=== PATIENT | male | born 1990 | race Caucasian/White ===

== ENCOUNTER 2016-08-05 08:17 | Emergency (ER) | payer SELFPAY ==
[~2016-08-05] VITALS: Ht 182.9 cm; Wt 82.0 kg
[2016-08-05 08:20] VITALS: Ht 182.9 cm; Wt 82.0 kg
--- OUTSIDE RECORDS SUMMARY | 2016-08-05 08:21 | XMS REPORT | Continuity of Care Document ---
Author Author [facility] Organization [facility] Address [address] [place] [address] Phone Unavailable Care Team Providers Care Home Connect Lpn Name Role Phone Provider, No Primary Care Primary Care Physician Unavailable Insurance Providers Payer Name Policy Number Subscriber Name Relationship Self Pay Cj Rapp Self / Same As Patient Advance Directives Directive Response Recorded Date/Time Do You Have A Living Will? No 03/23/16 11:33am Do You Have a DPOA? No 03/23/16 11:33am Chief Complaint and Reason for Visit Chief Complaint Allergic Reaction Reason for Visit Allergic reaction Problems Active Problems Medical Problem Onset Date Status Gastroenteritis Unknown Acute Sinusitis, acute frontal Unknown Acute Allergic reaction Unknown Acute Medications Current Home Medications Medication Dose Units Route Directions Days/Qty Instructions Start Date Amoxicillin Trihydrate 500 Mg 500 Mg Oral Three Times A Day 10 Days Past Home Medications Medication Directions Ordered Status Ondansetron Hcl 4 Mg Tab.rapdis, 4 Mg Oral Every 6 Hours As Needed as needed for Nausea 06/16/14 Discontinued Social History Social History Problem Response Recorded Date/Time History of Street Drugs? Yes 03/23/2016 11:32am Hx Alcohol Use Yes 03/23/2016 11:32am Query Response Start Date Stop Date Smoking status: Current everyday smoker Hospital Discharge Instructions No hospital discharge instructions. Plan of Care Discharge Date 03/23/16 12:38pm Disposition HOME, ROUTINE DIS/ASST LIVING Condition at Discharge Stable & Improved Instructions/Education Provided General Allergic Reaction (ED) Prescriptions See Medication Section Referrals No Primary Care Provider - Additional Instructions/Education Activity Restrictions: Call the doctor's office for an appointment, if you have any problems, concerns or need to make a follow-up appointment. As discussed you may by some Benadryl over the counter and if symtoms return take 25mg once every 4 hours if needed. If you have any new or worsening symptoms you can return for another evaluation. I recommend to stop taking your medication if this is what you think the cause was. IMPORTANT: We examined and treated you today on an emergency basis only. In most cases, you must let your doctor check you again. Tell your doctor about any new or lasting problems. We cannot recognize and treat all injuries or illnesses in one Emergency Department visit. If you had special tests, such as EKG's or X-rays, we will review them again within 24 hours. We will call you if there are any new suggestions. YOU ARE THE MOST IMPORTANT FACTOR IN YOUR RECOVERY. Follow these instructions carefully. Take your medicines as prescribed. Most important, see a doctor again as discussed. If you have problems that we have not discussed, call or visit your doctor right away. [facility] Emergency Department Functional Status No functional status results. Allergies, Adverse Reactions, Alerts No known allergies. Immunizations No immunization records. Vital Signs Acute Vital Signs Vital Response Date/Time Temperature (Fahrenheit) 97.6 degrees F (97.6 - 99.5) 03/23/2016 11:38am Pulse Pulse Rate 81 bpm (60 - 100) 03/23/2016 12:35pm Respiratory Rate 18 bpm (10 - 24) 03/23/2016 12:35pm Oxygen Saturation O2 Sat by Pulse Oximetry 98 % (93 - 100) 03/23/2016 12:35pm Blood Pressure 128/73 mm Hg 03/23/2016 12:35pm Blood Pressure Mean 91 mm Hg 03/23/2016 12:35pm Height 6 ft 0 in Weight 158 lb Body Mass Index 21.4 kg/m^2 Ambulatory Vital Signs Vital Response Date/Time Height 5 ft 9.500 in 06/16/2014 2:26pm Weight 165 lbs 06/16/2014 2:26pm Temperature 97.5 degrees F 06/16/2014 2:26pm Blood Pressure, Sitting 138/93 mm Hg 06/16/2014 2:26pm Pulse Rate 89 bpm 06/16/2014 2:26pm Respiration Rate 22 bpm 06/16/2014 2:26pm Body Surface Area 1.92 m2 06/16/2014 2:26pm Body Mass Index 24.0 kg/m2 06/16/2014 2:26pm Pulse Oximetry Pulse Oximetry 06/16/2014 2:26pm Results Laboratory Results Test Name Result Units Flags Reference Collection Date/Time Result Date/ Time Comments Influenza Type A Antigen NEGATIVE NEGATIVE 03/08/2016 12:57pm 2015 1:34pm Influenza Type B Antigen NEGATIVE NEGATIVE 03/08/2016 12:57pm 2015 1:34pm Influenza Virus Source NASAL 03/08/2016 12:57pm 03/08/2016 1:34pm White Blood Count 11.6 1000/cmm H 3.80-10.80 03/08/2016 1:10pm 2015 1:16pm Red Blood Count 4.30 MIL/uL 4.20-5.80 03/08/2016 1:10pm 03/08/2016 1: 16pm Hemoglobin 14.1 g/dL 13.2-17.1 03/08/2016 1:10pm 03/08/2016 1:16pm Hematocrit 40.0 % 39.0-50.0 03/08/2016 1:10pm 03/08/2016 1:16pm Mean Corpuscular Volume 93.0 fL 80.0-100.0 03/08/2016 1:10pm 2015 1:16pm Mean Corpuscular Hemoglobin 32.8 pg 27.0-33.0 03/08/2016 1:10pm 2015 1:16pm Mean Corpuscular Hemoglobin Concent 35.3 g/dL 32.0-36.0 03/08/2016 1: 10pm 03/08/2016 1:16pm Platelet Count 312 1000/uL 140-400 03/08/2016 1:10pm 03/08/2016 1:16pm Neutrophils (%) (Auto) 62.4 % 50.0-70.0 03/08/2016 1:10pm 03/08/2016 1: 16pm Lymphocytes (%) (Auto) 25.8 % 20.0-44.0 03/08/2016 1:10pm 03/08/2016 1: 16pm Monocytes (%) (Auto) 9.4 % 4.0-13.0 03/08/2016 1:10pm 03/08/2016 1: 16pm Eosinophils (%) (Auto) 2.1 % <=4.0 03/08/2016 1:10pm 03/08/2016 1:16pm Basophils (%) (Auto) 0.3 % <=3.0 03/08/2016 1:10pm 03/08/2016 1:16pm Neutrophils # (Auto) 7.23 1000/uL 1.90-7.60 03/08/2016 1:10pm 2015 1:16pm Lymphocytes # (Auto) 2.99 1000/uL 0.80-4.75 03/08/2016 1:10pm 2015 1:16pm Monocytes # (Auto) 1.09 1000/uL 0.15-1.40 03/08/2016 1:10pm 03/08/2016 1:16pm Eosinophils # (Auto) 0.24 1000/uL 0.00-0.40 03/08/2016 1:10pm 2015 1:16pm Basophils # (Auto) 0.04 1000/uL 0.00-0.30 03/08/2016 1:10pm 03/08/2016 1:16pm Red Cell Distribution Width 12.0 % 11.0-15.0 03/08/2016 1:10pm 2015 1:16pm Mean Platelet Volume 8.9 fL 8.7-11.9 03/08/2016 1:10pm 03/08/2016 1: 16pm White Blood Count 8.0 1000/cmm 3.80-10.80 03/23/2016 11:53am 2015 12:19pm Red Blood Count 4.75 MIL/uL 4.20-5.80 03/23/2016 11:53am 03/23/2016 12: 19pm Hemoglobin 15.3 g/dL 13.2-17.1 03/23/2016 11:53am 03/23/2016 12:19pm Hematocrit 44.1 % 39.0-50.0 03/23/2016 11:53am 03/23/2016 12:19pm Mean Corpuscular Volume 92.8 fL 80.0-100.0 03/23/2016 11:53am 2015 12:19pm Mean Corpuscular Hemoglobin 32.2 pg 27.0-33.0 03/23/2016 11:53am 2015 12:19pm Mean Corpuscular Hemoglobin Concent 34.7 g/dL 32.0-36.0 03/23/2016 11: 53am 03/23/2016 12:19pm Platelet Count 423 1000/uL H 140-400 03/23/2016 11:53am 03/23/2016 12: 19pm Neutrophils (%) (Auto) 53.6 % 50.0-70.0 03/23/2016 11:53am 03/23/2016 12:19pm Lymphocytes (%) (Auto) 33.8 % 20.0-44.0 03/23/2016 11:53am 03/23/2016 12:19pm Monocytes (%) (Auto) 9.3 % 4.0-13.0 03/23/2016 11:53am 03/23/2016 12: 19pm Eosinophils (%) (Auto) 2.8 % <=4.0 03/23/2016 11:53am 03/23/2016 12: 19pm Basophils (%) (Auto) 0.5 % <=3.0 03/23/2016 11:53am 03/23/2016 12:19pm Neutrophils # (Auto) 4.27 1000/uL 1.90-7.60 03/23/2016 11:53am 2015 12:19pm Lymphocytes # (Auto) 2.69 1000/uL 0.80-4.75 03/23/2016 11:53am 2015 12:19pm Monocytes # (Auto) 0.74 1000/uL 0.15-1.40 03/23/2016 11:53am 2015 12:19pm Eosinophils # (Auto) 0.22 1000/uL 0.00-0.40 03/23/2016 11:53am 2015 12:19pm Basophils # (Auto) 0.04 1000/uL 0.00-0.30 03/23/2016 11:53am 2015 12:19pm Red Cell Distribution Width 12.4 % 11.0-15.0 03/23/2016 11:53am 2015 12:19pm Mean Platelet Volume 9.0 fL 8.7-11.9 03/23/2016 11:53am 03/23/2016 12: 19pm Sodium Level 139 mmol/L 136-145 03/23/2016 11:53am 03/23/2016 12:20pm Potassium Level 4.2 mmol/L 3.6-5.0 03/23/2016 11:53am 03/23/2016 12: 20pm Chloride Level 106 mmol/L 97-109 03/23/2016 11:53am 03/23/2016 12:20pm Carbon Dioxide Level 23 mEq/L 17-26 03/23/2016 11:53am 03/23/2016 12: 20pm Anion Gap 14 8-18 03/23/2016 11:53am 03/23/2016 12:20pm Glucose Level 128 mg/dL H 70-99 03/23/2016 11:53am 03/23/2016 12:20pm Blood Urea Nitrogen 18.2 mg/dL 8.9-20.6 03/23/2016 11:53am 03/23/2016 12:20pm Creatinine 0.72 mg/dL 0.57-1.11 03/23/2016 11:53am 03/23/2016 12:20pm Estimated GFR (Non- >=61 >60 03/23/2016 11:53am 03/23 12:20pm eGFR is measured in mL/min/1.73m2. If patient is -[place], multiply reported result by 1.21. BUN/Creatinine Ratio 25 7-25 03/23/2016 11:53am 03/23/2016 12:20pm Calculated Osmolality 292 mOSM/kg 280-300 03/23/2016 11:53am 2015 12:20pm Calcium Level 9.1 mg/dL 8.4-10.0 03/23/2016 11:53am 03/23/2016 12:20pm Urine Cannabinoids Screen PRESUMPTIVE POSITIVE * NEGATIVE 03/23/2016 11 :58am 03/23/2016 12:22pm Confirmatory testing is recommended for all presumptive positive samples. Urine Phencyclidine (PCP) Level NEGATIVE NEGATIVE 03/23/2016 11:58am 03/23/2016 12:22pm Urine Cocaine Level NEGATIVE NEGATIVE 03/23/2016 11:58am 03/23/2016 12:22pm Urine Methamphetamines Level NEGATIVE NEGATIVE 03/23/2016 11:58am 08/2015 12:22pm Urine Opiates Screen NEGATIVE NEGATIVE 03/23/2016 11:58am 03/23/2016 12:22pm Urine Amphetamines Screen PRESUMPTIVE POSITIVE * NEGATIVE 03/23/2016 11 :58am 03/23/2016 12:22pm Confirmatory testing is recommended for all presumptive positive samples. Urine Benzodiazepines Screen NEGATIVE NEGATIVE 03/23/2016 11:58am 08/2015 12:22pm Ur Tricyclic Antidepressants Screen NEGATIVE NEGATIVE 03/23/2016 11: 58am 03/23/2016 12:22pm Urine Methadone Level NEGATIVE NEGATIVE 03/23/2016 11:58am 2015 12:22pm Urine Barbiturates Screen NEGATIVE NEGATIVE 03/23/2016 11:58am 2015 12:22pm Urine Oxycodone Level NEGATIVE NEGATIVE 03/23/2016 11:58am 2015 12:22pm Urine Propoxyphene Level NEGATIVE NEGATIVE 03/23/2016 11:58am 2015 12:22pm THE REFERENCE RANGE FOR ALL DRUG CLASSES IS NEGATIVE. THE DETECTION LIMITS FOR THE DRUG CLASSES ARE: TRICYCLIC ANTIDEPRESSANTS...................... 300 ng/mL BARBITURATES................................... 200 ng/mL METHADONE...................................... 200 ng/mL BENZODIAZEPINE................................. 150 ng/mL CANNABINOIDS................................... 50 ng/mL OPIATES........................................ 100 ng/mL AMPHETAMINE.....................................500 ng/mL COCAINE METABOLITES............................ 150 ng/mL PHENCYCLIDINE.................................. 25 ng/mL PROPOXYPHENE................................... 300 ng/mL mAMP............................................500 ng/mL OXYCODONE.......................................100 ng/mL THESE SCREENING RESULTS ARE TO BE USED ONLY FOR MEDICAL TREATMENT PURPOSES. Ambulatory Laboratory Results Test Name Result Units Flags Reference Result Date/Time Comments Bedside Blood Urea Nitrogen 6 mg/dL 6-06/16/2014 3:02pm Bedside Chloride 102 mmol/L 96-110 06/16/2014 3:02pm Bedside Total CO2 26 mmol/L 23-33 06/16/2014 3:02pm Bedside Creatinine 0.7 mg/dL 0.5-1.2 06/16/2014 3:02pm Bedside Anion Gap 16 mmol/L 8-18 06/16/2014 3:02pm Bedside Glucose 87 mg/dL 60-108 06/16/2014 3:02pm Bedside Hematocrit 44 % 06/16/2014 3:02pm Bedside Hemoglobin (Calculated) 15 g/dL 13.0-18.0 06/16/2014 3:02pm Bedside Ionized Calcium (Cata) 1.28 mmol/L H 1.12-1.23 06/16/2014 3:02pm Bedside Potassium 3.8 mmol/L 3.5-5.3 06/16/2014 3:02pm Bedside Sodium 139 mmol/L 136-148 06/16/2014 3:02pm Bedside White Blood Count 7.9 10^9/L 4.0-11.0 06/16/2014 2:56pm Procedures Procedure Status Date Provider(s) ROUTINE VENIPUNCTURE Completed 03/08/16 COMPLETE CBC W/AUTO DIFF WBC Completed 03/08/16 INFLUENZA ASSAY W/OPTIC Completed 03/08/16 EMERGENCY DEPT VISIT Completed 03/08/16 Encounters Encounter Location Arrival/Admit Date Discharge/Depart Date Attending Provider Departed Emergency Room [facility] 03/23/16 11:33am 12:38pm Figueroa Granados Departed Emergency Room [facility] 03/08/16 12:38pm 1:45pm Verenice Rangel APRN Recent Diagnosis Allergic reaction
--- OUTSIDE RECORDS SUMMARY | 2016-08-05 08:21 | XMS REPORT | Continuity of Care Document ---
Author Author [facility] Organization [facility] Address Unknown Phone Unavailable Allergies Active Description Code Type Severity Reaction Onset Reported/Identified Relationship to Patient Clinical Status Yes No Known Allergies NKA Miscellaneous Allergy Unknown N/A 06/16/2014 Yes No Known Allergies NKA Miscellaneous Allergy Unknown N/A 06/16/2014 Medications Problems Date Dx Coded Attending Type Code Diagnosis Diagnosed By 06/16/2014 Varinder Araujo DO Other 780.96 GENERALIZED PAIN 03/08/2016 Verenice Rangel APRN Other J01.90 ACUTE SINUSITIS, UNSPECIFIED 03/08/2016 Verenice Rangel APRN Other R05 COUGH Procedures Results Test Result Range Influenzae A B (rapid) - 03/08/16 12:57 Influenzae A NEGATIVE NEGATIVE Influenzae B NEGATIVE NEGATIVE Source NASAL Complete Blood Count - 03/08/16 13:10 White Blood Count 11.6 1000/cmm 3.80- 10.80 Red Blood Cell Count 4.30 MIL/uL 4.20- 5.80 Hemoglobin 14.1 g/dL 13.2-17.1 Hematocrit 40.0 % 39.0-50.0 Mean Corpuscular Volume 93.0 fL 80.0- 100.0 Mean Corpuscular Hemoglobin 32.8 pg 27.0- 33.0 Mean Corpuscular HGB Conc 35.3 g/dL 32.0- 36.0 Platelet Count 312 1000/uL 140-400 Neutrophil % 62.4 % 50.0-70.0 Lymphocytes % 25.8 % 20.0-44.0 Monocytes % 9.4 % 4.0-13.0 Eosinophil % 2.1 % <=4.0 Basophil % 0.3 % <=3.0 Neutrophils # 7.23 1000/uL 1.90-7.60 Lymphocytes # 2.99 1000/uL 0.80-4.75 Monocytes # 1.09 1000/uL 0.15-1.40 Eosinophil # 0.24 1000/uL 0.00-0.40 Basophil # 0.04 1000/uL 0.00-0.30 Red Cell Distribution Width 12.0 % 11.0- 15.0 Mean Platelet Volume 8.9 fL 8.7-11.9 Complete Blood Count - 03/23/16 11:53 White Blood Count 8.0 1000/cmm 3.80- 10.80 Red Blood Cell Count 4.75 MIL/uL 4.20- 5.80 Hemoglobin 15.3 g/dL 13.2-17.1 Hematocrit 44.1 % 39.0-50.0 Mean Corpuscular Volume 92.8 fL 80.0- 100.0 Mean Corpuscular Hemoglobin 32.2 pg 27.0- 33.0 Mean Corpuscular HGB Conc 34.7 g/dL 32.0- 36.0 Platelet Count 423 1000/uL 140-400 Neutrophil % 53.6 % 50.0-70.0 Lymphocytes % 33.8 % 20.0-44.0 Monocytes % 9.3 % 4.0-13.0 Eosinophil % 2.8 % <=4.0 Basophil % 0.5 % <=3.0 Neutrophils # 4.27 1000/uL 1.90-7.60 Lymphocytes # 2.69 1000/uL 0.80-4.75 Monocytes # 0.74 1000/uL 0.15-1.40 Eosinophil # 0.22 1000/uL 0.00-0.40 Basophil # 0.04 1000/uL 0.00-0.30 Red Cell Distribution Width 12.4 % 11.0- 15.0 Mean Platelet Volume 9.0 fL 8.7-11.9 Basic Metabolic Profile - 03/23/16 11:53 Sodium Level 139 mmol/L 136-145 Potassium Level 4.2 mmol/L 3.6-5.0 Chloride Level 106 mmol/L 97-109 Carbon Dioxide Level 23 mEq/L 17-26 Anion Gap 14 8-18 Glucose 128 mg/dL 70-99 Blood Urea Nitrogen 18.2 mg/dL 8.9-20.6 Creatinine 0.72 mg/dL 0.57-1.11 eGFR Non-Black >=61 >60 BUN/Creatinine Ratio 25 7-25 Osmolality, Calculated 292 mOSM/kg 280- 300 Calcium Level 9.1 mg/dL 8.4-10.0 Toxicology Screen, Urine - 03/23/16 11:58 Cannabinoids(Marijuana) PRESUMPTIVE POSITIVE NEGATIVE Phencyclidine NEGATIVE NEGATIVE Cocaine NEGATIVE NEGATIVE Methamphetamines NEGATIVE NEGATIVE Opiates NEGATIVE NEGATIVE Amphetamine/Meth PRESUMPTIVE POSITIVE NEGATIVE Benzodiazepines NEGATIVE NEGATIVE Tricyclic Antidepressants NEGATIVE NEGATIVE Methadone NEGATIVE NEGATIVE Barbiturates NEGATIVE NEGATIVE Oxycodone NEGATIVE NEGATIVE Propoxyphene NEGATIVE NEGATIVE HIV-1 p24 Ag/HIV1/HIV2 Ab - 04/09/16 14:48 HIV-1 p24 Ag/HIV1/HIV2 Ab NON-REACTIVE NON-REACTIV Acute Hepatitis Panel - 04/09/16 14:48 Hepatitis A Virus AB IgM NON-REACTIVE NON-REACTIVE Hepatitis B Core AB IgM NON-REACTIVE NON -REACTIVE Hepatitis B Surface Antigen NON-REACTIVE NON-REACTIVE Hepatitis C Virus AB REACTIVE NON- REACTIVE Hep C Ab Signal/Cut-Off Ratio 33.40 < 1.00 HSV 2 IgG, Herpeselect Spec Ab - 04/09/16 14:48 HSV 2 IgG, Herpeselect Spec Ab <0.90 C.trachomatis/N.gonorrhoeae - 04/09/16 14:48 Chlamydia Trachomastis RNA,TMA NOT DETECTED NOT DETECTED Neisseria Gonorrhoeae RNA, TMA NOT DETECTED NOT DETECTED See Note: SEE NOTE Syphillis w/Rflx Titer - 04/09/16 14:48 Rapid Plasma Reagin(RPR) NON-REACTIVE NON-REACTIVE HCV RNA, Quant by PCR - 04/09/16 14:48 Hepatitis C, RNA Quant [id number] IU/mL <15 See Note SEE NOTE Hepatitis C, RNA Quant Log 5.60 Log IU/mL <1.18 Encounters ACCT No. Visit Date/Time Discharge Status Pt. Type Provider Facility Loc./Unit Complaint [id number] 06/16/2014 14:45:00 2014 23:59:59 [facility] SRH.IMG.UC [id number] 06/16/2014 14:00:00 2014 23:59:59 [facility] SRP.URGENT
--- OUTSIDE RECORDS SUMMARY | 2016-08-05 08:21 | XMS REPORT | Continuity of Care Document ---
Author Author [facility] Organization [facility] Address [address] [place] [address] Phone Unavailable Care Team Providers Care Health Insurance Agent Name Role Phone Memo Hernandez MD Primary Care Physician [phone] Insurance Providers Payer Name Policy Number Subscriber Name Relationship Self Pay Cj Rapp Self / Same As Patient Advance Directives Directive Response Recorded Date/Time Do You Have A Living Will? No 04/09/16 2:41pm Do You Have a DPOA? No 04/09/16 2:41pm Problems Active Problems Medical Problem Onset Date [...] discharge instructions. Plan of Care Discharge Date 04/09/16 11:59pm Prescriptions See Medication Section Functional Status No functional status results. Allergies, [...] Pressure Mean 91 mm Hg 03/23/2016 12:35pm Ambulatory Vital Signs Vital Response Date/Time Height [...] 1:16pm Platelet Count 312 1000/uL 140-400 03/08/2016 1:1003/08/2016 1:16pm Neutrophils (%) (Auto) 62.4 % 50.0-70.0 03/08/2016 1:1003/08/2016 1: 16pm Lymphocytes (%) (Auto) 25.8 % 20.0-44.0 03/08/2016 1:03/08/2016 1: 16pm Monocytes (%) (Auto) 9.4 % 4.0-13.0 03/08/2016 1:03/08/2016 1: 16pm Eosinophils (%) (Auto) 2.1 % <=4.0 03/08/2016 1:1003/08/2016 1:16pm Basophils (%) (Auto) 0.3 % <=3.0 03/08/2016 1:03/08/2016 1:16pm Neutrophils # (Auto) 7.23 1000/uL 1.90-7.60 03/08/2016 1:2015 1:16pm Lymphocytes # (Auto) 2.99 1000/uL 0.80-4.75 03/08/2016 1:10pm 2015 1:16pm Monocytes # (Auto) 1.09 1000/uL 0.15-1.40 03/08/2016 1:10pm 03/08/2016 1:16pm Eosinophils # (Auto) 0.24 1000/uL 0.00-0.40 03/08/2016 1:10pm 2015 1:16pm Basophils # (Auto) 0.04 1000/uL 0.00-0.30 03/08/2016 1:10pm 03/08/2016 1:16pm Red Cell Distribution Width 12.0 % 11.0-15.0 03/08/2016 1:10pm 2015 1:16pm Mean Platelet Volume 8.9 fL 8.7-11.9 03/08/2016 1:1003/08/2016 1: 16pm White Blood Count 8.0 1000/cmm [...] is measured in mL/min/1.73m2. If patient is -Micron[place], multiply reported result by 1.21. BUN/Creatinine Ratio [...] BE USED ONLY FOR MEDICAL TREATMENT PURPOSES. HIV Antigen/Antibody Combo Qual NON-REACTIVE NON-REACTIV 04/09/2016 2: 48pm 04/09/2016 5:11pm Hepatitis A IgM Antibody NON-REACTIVE NON-REACTIVE 04/09/2016 2:48pm 04/11/2016 9:18am THIS TEST WAS PERFORMED AT: [facility] [address] [place] [phone] MAGNO MURILLO DO,MPH Hepatitis B Core IgM Antibody NON-REACTIVE NON-REACTIVE 04/09/2016 2: 48pm 04/11/2016 9:18am THIS TEST WAS PERFORMED AT: [facility] [address] [place], [place] [address] [address] MAGNO MURILLO DO,MPH Hepatitis B Surface Antigen NON-REACTIVE NON-REACTIVE 04/09/2016 2: 48pm 04/11/2016 9:18am THIS TEST WAS PERFORMED AT: [facility] [place] [address] MAGNO MURILLO DO,MPH Hepatitis C Antibody REACTIVE * NON-REACTIVE 04/09/2016 2:48pm 2015 9:18am Hepatitis C Ab Signal/Cutoff Ratio 33.40 H <1.00 04/09/2016 2:48pm 9:18am Following CDC recommendations (MMWR No. 62, 2013), this patient's HCV Antibody Reactive sample will be tested for the presence of HCV RNA by a Nucleic Acid Amplification Test (NAAT) to determine if the patient has an active HCV infection. THIS TEST WAS PERFORMED AT: [facility] [address] [facility] [place] [address] MAGNO MURILLO DO,MPH Rapid Plasma Reagin NON-REACTIVE NON-REACTIVE 04/09/2016 2:48pm 04/11 3:52pm THIS TEST WAS PERFORMED AT: [facility] [address] [place] [address] MAGNO MURILLO DO,MPH Chlamydia trachomatis RNA (TMA) NOT DETECTED NOT DETECTED 04/09/2016 2 :48pm 04/11/2016 3:31pm Neisseria gonorrhoeae RNA (TMA) NOT DETECTED NOT DETECTED 04/09/2016 2 :48pm 04/11/2016 3:31pm Neisseria gonorrhoeae Comment SEE NOTE 04/09/2016 2:48pm 2015 3:31pm This test was performed using the APTIMA COMBO2 Assay ([employer] The analytical performance characteristics of this assay, when used to test SurePath specimens have been determined by [employer]. THIS TEST WAS PERFORMED AT: [place] [facility] [address] [place] [address] MAGNO MURILLO DO,MPH Herpes Simplex Virus II IgG Ab <0.90 04/09/2016 2:48pm 04/11/2016 3 :09pm Value Interpretation ----- <0.90 Negative 0.90-1.10 Equivocal >1.10 Positive This assay utilizes recombinant type-specific antigens to differentiate HSV-1 from HSV-2 infections. A positive result cannot distinguish between recent and past infection. If recent HSV infection is suspected but the results are negative or equivocal, the assay should be repeated in 4-6 weeks. The performance characteristics of the assay have not been established for pediatric populations, immunocompromised patients, or screening. THIS TEST WAS PERFORMED AT: [place] [facility] [address] [place] [address] MAGNO MURILLO DO,MPH Ambulatory Laboratory Results Test Name Result Units Flags Reference Result Date/Time Comments Bedside Blood Urea Nitrogen 6 mg/dL 6-22 06/16/2014 3:02pm Bedside Chloride 102 mmol/L 96-110 06/16/2014 [...] Completed 03/08/16 EMERGENCY DEPT VISIT Completed 03/08/16 ROUTINE VENIPUNCTURE Completed 03/23/16 METABOLIC PANEL TOTAL CA Completed 03/23/16 DRUG SCREEN NON TLC DEVICES Completed 03/23/16 COMPLETE CBC W/AUTO DIFF WBC Completed 03/23/16 THER/PROPH/DIAG INJ SC/IM Completed 03/23/16 EMERGENCY DEPT VISIT Completed 03/23/16 Encounters Encounter Location Arrival/Admit Date Discharge/Depart Date Attending Provider Departed Clinic [facility] 04/09/16 2:41pm 04/09/16 11: 59pm Memo Hernandez MD Departed Emergency Room [facility] 03/23/16 11:33am 12:38pm Figueroa Granados Departed Emergency Room [facility] 03/08/16 12:38pm 1:45pm Verenice Rangel APRN
--- OUTSIDE RECORDS SUMMARY | 2016-08-05 08:22 | XMS REPORT | Continuity of Care Document ---
Author Author [facility] Organization [facility] Address [address] [place] [address] Phone Unavailable Care Team Providers Care Retail Clerk Name Role Phone Provider, No Primary Care Primary Care Physician Unavailable Insurance Providers Payer Name Policy Number Subscriber Name Relationship [facility] [id number] Armand Chavez Advance Directives Directive Response Recorded Date/Time Do You Have A Living Will? No 03/08/16 12:38pm Do You Have a DPOA? No 03/08/16 12:38pm Chief Complaint and Reason for Visit Chief Complaint Sinus Pain/Problem Reason for Visit Sinusitis, acute frontal Problems Active Problems Medical Problem Onset Date Status Gastroenteritis Unknown Acute Sinusitis, acute frontal Unknown Acute Medications Current Home Medications Medication [...] Recorded Date/Time History of Street Drugs? Yes 03/08/2016 12:38pm Hx Alcohol Use Yes 03/08/2016 12:38pm Hospital Discharge Instructions No hospital discharge instructions. Plan of Care Discharge Date 03/08/16 1:45pm Disposition HOME, ROUTINE DIS/ASST LIVING Condition at Discharge Stable & Improved Instructions/Education Provided Sinusitis (ED) Prescriptions See Medication Section Referrals No Primary Care Provider - Additional Instructions/Education Activity Restrictions: rest Call the doctor's office for an appointment in 7-10 days, if you have any problems, concerns or need to make a follow-up appointment, increase fluids, tylenol or Ibuprofen for fever and pain, take all antibiotic, return to emergency dept. as needed. IMPORTANT: We examined and treated you today [...] call or visit your doctor right away. [facility] Functional Status No functional status results. Allergies, Adverse Reactions, Alerts No known allergies. Immunizations No immunization records. Vital Signs Acute Vital Signs Vital Response Date/Time Temperature (Fahrenheit) 98.1 degrees F (97.6 - 99.5) 03/08/2016 12:42pm Pulse Pulse Rate 63 bpm (60 - 100) 03/08/2016 1:43pm Respiratory Rate 16 bpm (10 - 24) 03/08/2016 1:43pm Oxygen Saturation O2 Sat by Pulse Oximetry 98 % (93 - 100) 03/08/2016 1:43pm Blood Pressure 125/78 mm Hg 03/08/2016 1:43pm Blood Pressure Mean 94 mm Hg 03/08/2016 1:43pm Height 6 ft 0 in Weight 157 lb Body Mass Index 21.3 kg/m^2 Ambulatory Vital Signs Vital Response Date/Time [...] fL 8.7-11.9 03/08/2016 1:10pm 03/08/2016 1: 16pm Ambulatory Laboratory Results Test Name Result Units [...] Count 7.9 10^9/L 4.0-11.0 06/16/2014 2:56pm Procedures No known history of procedures. Encounters Encounter Location Arrival/Admit Date Discharge/Depart Date Attending Provider Departed Emergency Room [facility] 03/08/16 12:38pm 1:45pm Verenice Rangel APRN Recent Diagnosis
--- NOTE | 2016-08-05 08:56 | ERPDOC ---
Departure Disposition Decision Date: Aug 05, 2016 Disposition Decision Time: 09:06 Disposition: 01 DISCHARGED HOME, SELF-CARE Impression Impression Impression: Primary Impression: Abscessed tooth Severity: Moderate Condition: Stable Seen By: Physician only Problems/Meds/Labs Reviewed?: Yes Medications reviewed and manag: Yes Follow up care ordered?: Yes Mental Status: Alert, Oriented Scripts Meloxicam (Mobic) 15 Mg Tablet 1 TAB PO DAILY, #30 TAB Prov: RUBIA QUILES MD 08/05/16 Amoxicillin/Potassium Clav (Augmentin 875-125 Tablet) 1 Each Tablet 1 TAB PO BID, #20 TAB TAKE WITH MEALS Prov: RUBIA QUILES MD 08/05/16 HPI General Chief Complaint: Toothache Stated Complaint: ABCESS TOOTH Time Seen by Provider: 08:53 HPI Dental Initial Comments 18-year-old gentleman with left-sided jaw pain. Patient has several teeth that are abscess, he has an appointment with a dentist for next week, but [facility], and is going to see them tomorrow. When he called them today to let them know that the tooth is getting worse, they told him to come to the ER and get started on some antibiotics. He is not having fever, does have foul drainage which he can taste from his tooth pain into the left jaw, and also in the left anterior neck. Allergies: Coded Allergies: Sulfa (Sulfonamide Antibiotics) (Verified Allergy, Mild, 08/05/16) Past History Past Medical History Pt denies signifigant PMH Surgical History Denies Surgeries Family History Family History: Negative Social History Smoking Status: Current every day smoker Substance Use Type: does not use Alcohol Intake: none Record Review Pertinent history updated: Yes Review of Systems ENMT Teeth: see HPI Jaw: see HPI All other Systems All Other Systems: Reviewed and Negative Exam General General Nourishment: well nourished, well developed, appears stated age, no acute distress [facility] Dental Jaw: asymmetry (swelling on left lower jaw) Neck Comments Left anterior cervical nodes noted Respiratory Comments No crackles or wheezes heard Cardiovascular Comments Regular rate and rhythm with no murmur heard Neurologic RN Documented GCS Eye Opening: Verbal: Motor: Total: Differential Diagnoses Considering: Gingival Abscess, Caries, Impacted Tooth, Tooth Avulsion/Extrusion , Tooth Fracture, Vincent's Angina Progress Results/Orders Orders Procedure Category Date Status Time Ketorolac (Toradol) PHA 08/05/16 Complete 09:00 Ceftriaxone (Rocephin) PHA 08/05/16 Complete 09:00 Medications Current ED Medications Ketorolac Tromethamine (Toradol) 60 mg O ONCE IM Last administered on 09:02; Start 08/05/16 at 09:00; Stop 08/05/16 at 09:01; Status DC Ceftriaxone Sodium (Rocephin) 1 g O ONCE IM Last administered on 08/05/16 09: 02; Start 08/05/16 at 09:00; Stop 08/05/16 at 09:01; Status DC Progress Progress On exam 3 teeth on the lower jaw are noted to be fully rotted with discharge coming underneath first molar. Patient was started on Augmentin 875 twice a day. Will give him 1 g of Rocephin IM now. Toradol 60 mg IM for pain. He will meet with his PCP tomorrow and set up that appointment. RUBIA QUILES MD Aug 05, 2016 08:56
[2016-08-05] MEDS ORDERED: FLUO20CA30 PO (09:00)
[2016-08-05] MEDS ORDERED: CEFTRIAXONE 1 GRAM INJECTION IM ONE (09:00)
[2016-08-05] MEDS ORDERED: IBUP-1724 PO (09:00)
[2016-08-05] MEDS ORDERED: KETOROLAC 60mg/2ml INJECTION IM ONE (09:00)
[2016-08-05] MEDS ORDERED: MELO15TA12 PO (09:07)
[2016-08-05] MEDS ORDERED: AMOX-351 PO (09:07)
--- OUTSIDE RECORDS SUMMARY | 2016-08-05 09:07 | XMS REPORT | Continuity of Care Document ---
Author Author [facility] Organization [facility] Address Unknown Phone Unavailable Allergies Active Description [...] - 04/09/16 14:48 Hepatitis C, RNA Quant 444802 IU/mL <15 See Note SEE NOTE Hepatitis C, RNA Quant Log 5.60 Log IU/mL <1.18 Encounters ACCT No. Visit Date/Time Discharge Status Pt. Type Provider Facility Loc./Unit Complaint [id number] 06/16/2014 14:45:00 2014 23:59:59 [facility] Outpatient [facility] [id number] 06/16/2014 14:00:00 2014 23:59:59 [facility] Outpatient [facility]
[2016-08-05 09:30] VITALS: BP 130/71; PULSE 66; RESP 15; TEMP 98.4; O2SAT 98
== END 2016-08-05 09:30 | disposition home or self-care (01) ==
LOC: ED 08:17
DX: K04.7 Periapical abscess without sinus (principal)
CPT/HCPCS: 96372

== ENCOUNTER 2016-09-06 20:21 | Emergency (ER) | payer SELFPAY ==
[~2016-09-06] VITALS: Ht 182.9 cm; Wt 73.3 kg
[~2016-09-06 20:21] MED LIST: AMOX-351 PO; FLUO20CA30 PO; IBUP-1724 PO; MELO15TA12 PO
[2016-09-06 20:25] VITALS: BP 131/78; PULSE 85; RESP 16; TEMP 98.2; O2SAT 98; Ht 182.9 cm; Wt 73.3 kg
--- OUTSIDE RECORDS SUMMARY | 2016-09-06 20:25 | XMS REPORT | Continuity of Care Document ---
Author Author [facility] Organization [facility] Address Unknown Phone Unavailable Support Name Relationship Address Phone RUBIA QUILES MD Caregiver [address] [place] [id number] Unavailable MORENO CHAVEZ Next Of Kin Unknown [phone] Insurance Providers Guarantor Derik Rapp Address [address] [place] [address] Email DENIED 16 Payer Self Pay Subscriber's Name Derik Rapp Relationship 18 Self Advance Directives Directive Response Recorded Date/Time Advanced Directives Type None 08/05/16 8:20am Chief Complaint and Reason for Visit Chief Complaint Toothache Reason for Visit [id number] Problems Past Problems Medical Problem Onset Date Abscessed tooth Unknown Medications Current Home Medications Medication Dose Units Route Directions Days Qty Instructions Start Date Amoxicillin/Potassium Clav (Augmentin 875-125 Tablet) 1 Each Tablet 1 Tab Oral Twice A Day 20 Tablet TAKE WITH MEALS 08/05/16 Fluoxetine Hcl (Prozac) 20 Mg Capsule 20 Mg Oral Bedtime 08/05/16 Ibuprofen 200 Mg Tablet 400 Mg Oral Every 4 Hours as needed for Pain 08/05/16 Meloxicam (Mobic) 15 Mg Tablet 1 Tab Oral Daily 30 Tablet 08/05/16 Social History Social History Problem Response Recorded Date/Time Onset Date Status Chewing Tobacco Status No 08/05/2016 8:20am Not Applicable Not Applicable Hx Substance Use No 08/05/2016 8:20am Not Applicable Not Applicable Hx Alcohol Use No 08/05/2016 8:20am Not Applicable Not Applicable Query Response Start Date Stop Date Smoking Status Current every day smoker Hospital Discharge Instructions No hospital discharge instructions. Plan of Care Discharge Date 08/05/16 9:30am Disposition 01 DISCHARGED HOME, SELF-CARE Condition at Discharge Stable Prescriptions See Medication Section Functional Status No functional status results. Allergies, Adverse Reactions, Alerts Allergen Type Severity Reaction Status Last Updated Sulfa (Sulfonamide Antibiotics) Allergy Mild Active 08/05/16 Immunizations No immunization records. Vital Signs Acute Vital Signs Vital Response Date/Time Temperature (Fahrenheit) 98.4 deg F (96.8 - 99.1) 08/05/2016 9:30am Temperature (Calculated Celsius) 36.30043 degrees C (36.0 - 37.3) 08/05/2016 9:30am Pulse Rate (adult) 66 bpm (60 - 100) 08/05/2016 9:30am Respiratory Rate 15 breaths/min (10 - 20) 08/05/2016 9:30am O2 Sat by Pulse Oximetry 98 % (90 - 100) 08/05/2016 9:30am Blood Pressure 130/71 mm Hg 08/05/2016 9:30am Height (Feet) 6 feet 08/05/2016 8:20am Height (Inches) 0 inches 08/05/2016 8:20am Weight (Kilograms) 82.000 kg 08/05/2016 8:20am Body Mass Index (BMI) 24.0 08/05/2016 8:20am Results No known relevant diagnostic tests, laboratory data and/or discharge summary. Procedures No known history of procedures. Encounters Encounter Location Arrival/Admit Date Discharge/Depart Date Attending Provider Departed Emergency Room [facility] 08/05/16 8:17am 08/05/16 9: 30am RUBIA QUILES MD Recent Diagnosis
--- OUTSIDE RECORDS SUMMARY | 2016-09-06 20:25 | XMS REPORT | Continuity of Care Document ---
Author Author [facility] Organization [facility] Address Unknown Phone Unavailable Allergies Active [...] - 04/09/16 14:48 Hepatitis C, RNA Quant [id number] IU/mL <15 See Note SEE NOTE Hepatitis C, RNA Quant Log 5.60 Log IU/mL <1.18 Encounters ACCT No. Visit Date/Time Discharge Status Pt. Type Provider Facility Loc./Unit Complaint [id number] 06/16/2014 14:45:00 2014 23:59:59 [facility] Outpatient [facility] [id number] 06/16/2014 14:00:00 2014 23:59:59 [facility] Outpatient [facility]
--- NOTE | 2016-09-06 20:33 | NUR ---
PROVIDER DR ARMSTRONG IN TO SEE PATIENT.
--- OUTSIDE RECORDS SUMMARY | 2016-09-06 20:42 | XMS REPORT | Continuity of Care Document ---
Author Author [facility] Organization [facility] Address Unknown Phone Unavailable Allergies Active Description [...] - 04/09/16 14:48 Hepatitis C, RNA Quant 444505 IU/mL <15 See Note SEE NOTE Hepatitis C, RNA Quant Log 5.60 Log IU/mL <1.18 Encounters ACCT No. Visit Date/Time Discharge Status Pt. Type Provider Facility Loc./Unit Complaint [id number] 06/16/2014 14:45:00 2014 23:59:59 [facility] Outpatient [facility] [id number] 06/16/2014 14:00:00 2014 23:59:59 [facility] Outpatient [facility]
[2016-09-06] MEDS ORDERED: CLINDAMYCIN 300 MG CAPSULE PO ONE (20:45)
--- NOTE | 2016-09-06 20:47 | ERPDOC ---
Departure Disposition Decision Date: Sep 06, 2016 Disposition Decision Time: 20:49 Disposition: 01 DISCHARGED HOME, SELF-CARE Impression Impression Impression: Primary Impression: MRSA cellulitis Additional Impression: Neck nodule Severity: Moderate Condition: Improved Seen By: Physician only Patient Instructions: MRSA (Methicillin Resistant Staphylococcus Aureus) (ED) Problems/Meds/Labs Reviewed?: Yes Medications reviewed and manag: Yes Additional Instructions: Take clindamycin 300 mg 4 times daily for 10 days Take ibuprofen 600 mg 4 times daily for pain as needed Call [facility] first thing in the morning to get assistance with obtaining clindamycin medications Follow up care ordered?: Yes Mental Status: Alert, Oriented Scripts Clindamycin HCl (Clindamycin HCl) 300 Mg Capsule 300 MG PO QID, #40 CAP 0 Refills Prov: IDALMIS ARMSTRONG MD 09/06/16 HPI - Skin General General Chief Complaint: Skin Rash/Abscess Stated Complaint: POSS SPIDER BITE Time Seen by Provider: 20:28 Source: patient Exam Limitations: no limitations HPI - Skin General Initial Comments 2-3 day history of a large red nodule on the right posterior cervical lymph node chain area. 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 Patient described what he thought was a small bug bite, that has now progressed. Patient has a small central area of her, a 1 cm nodular induration, but has no purulent drainage, no fluctuance. Patient has no insurance, is not able to pay for any of his medications, and has no local physician. Patient is from [facility], but is unable to see his physician and alerted due to being in rehabilitation care at this time. Occurred At: home Onset: Rapid Severity: moderate 1 - 1 cm indurated lesion, tender, one half centimeter central eschar Hx of Similar Symptoms: No Allergies: Coded Allergies: Sulfa (Sulfonamide Antibiotics) (Verified Allergy, Mild, 09/06/16) Past History Past Medical History Psychological: drug abuse Surgical History Denies Surgeries Social History Substance Use Type: does not use, former substance user (past use), methamphetamine Alcohol Intake: none Review of Systems Constitutional Constitutional: DENIES: appetite decrease, appetite increase, chills, dizziness , fever, weakness ENMT Ears: DENIES: pain Hearing: DENIES: hearing loss, tinnitus Balance: DENIES: vertigo Mouth/Throat: DENIES: change in swallowing, change in voice, hoarsness, painful swallowing, sore throat Cardiovascular Cardiac: DENIES: chest pain, dyspnea on exertion Rhythm/Rate: DENIES: irregular beat, palpitations, tachycardia Vascular: DENIES: pedal edema Pulmonary Respiratory: DENIES: cough, dyspnea, pleuritic chest pain GI Upper Abdomen: DENIES: dysphagia, heartburn/indigestion, nausea, pain, vomiting Lower Abdomen: DENIES: blood in stool, constipation, diarrhea, pain General: DENIES: burning, dysuria, frequency, pain, urgency Musculoskeletal General: DENIES: cramps, joint pain, joint swelling, pain, weakness Integumentary Skin: lesion, DENIES: rash, sores Neurological General: DENIES: headache, numbness, tingling, vertigo, weakness Psychiatric Psychiatric: DENIES: anxiety, depression, nervousness Physical Exam General General Nourishment: well nourished, well developed, appears stated age, no acute distress General Body Habitus: well groomed Vitals and Pain First Documented Vital Signs Date Time Temp Pulse Resp B/P Pulse Ox O2 Delivery O2 Flow Rate FiO2 09/06/16 20:25 98.2 85 16 131/78 98 Room Air Weight: Kilograms: 73.300 Height (feet): 6 Height (inches): 0 Triage Pain Scale: RN VS reviewed by Provider: Yes Normal Exams: Head: Normocephalic w/o trauma Eyes: Pupils are PERRLA w/ EOMI, No scleral icterus, irritation, or foreign bodies noted ENMT (brief) ENMT Brief: FOUND: TM clear, TM good light reflex, ear canals clear, mucosa moist, normal dentition, normal tonsils, NOT FOUND: lesions, nasal erythema, nasal exudate, nasal swelling, petechiae, pharnyx erythema, tonsillar deviation Neck (brief) Neck: FOUND: trachea midline, NOT FOUND: JVD, adenopathy, nuchal rigidity, spasm, tenderness, thyromegaly, tracheal deviation Comments Patient has a 1 cm indurated subcuticular lesion at the upper portion of the right occipital lymph node chain. Patient has one half centimeter central eschar , no fluctuance, no induration of the skin. Mild erythema only over the area of deeper induration. Respiratory (brief) Respiratory: FOUND: clear all schaeffer, equal bilaterally, symmetrical, NOT FOUND : rales, tenderness, wheezes Cardiovascular (brief) Cardiac: FOUND: regular rate, regular rhythm, NOT FOUND: click, gallop, murmur , pedal edema Capillary Refill: <2 sec Pulses: all distal extremities, equal, strong Abdomen (brief) Abdominal Brief: FOUND: bowel normo active x4, soft, NOT FOUND: distended, hepatosplenomegaly, tender Lymphatic (brief) Lymphatic Brief: NOT FOUND: adenopathy, lymphedema Musculoskeletal (brief) Musculoskeletal Brief: NOT FOUND: deformity, loss of motion, spasm, tenderness Integumentary (brief) Integumentary Brief: FOUND: dry, pink, warm Neurologic (brief) Neurological Brief: FOUND: CN w/o gross def to obs, motor-no gross deficits, sensory-no gross deficits Psychiatric (brief) Psychiatric Brief: FOUND: alert, attentive, normal affect, oriented Progress Results/Orders Orders Procedure Category Date Status Time Wound Culture LUTHER 09/06/16 In Process [id number] 20:33 Clindamycin (Cleocin) PHA 09/06/16 In Process 20:45 Medications Current ED Medications Clindamycin HCl (Cleocin) 600 mg O ONCE PO ; Start 09/06/16 at 20:45; Stop at 20:46 Progress Progress Patient appears to have either an MRSA cellulitis versus erosive lymph node. Patient is started on clindamycin 4 g 4 times daily since he is allergic to Bactrim. Cultures are taken in the ER. Patient has significant mental constraints, and [facility], call first thing in the morning to see if he can get financial assistance or medication assistance through [facility]. IDALMIS ARMSTRONG MD Sep 06, 2016 20:47
[2016-09-06] MEDS ORDERED: CLIN300C86 PO (20:52)
== END 2016-09-06 21:00 | disposition home or self-care (01) ==
LOC: ED 20:21
DX: L03.221 Cellulitis of neck (principal); B95.62 Methicillin resistant Staphylococcus aureus infection as the cause of diseases classified elsewhere; R22.1 Localized swelling, mass and lump, neck
CPT/HCPCS: 87070; 87147; 87186; 87205